=== PATIENT | female | born 1945 | race Caucasian/White ===

== ENCOUNTER → 2016-08-04 | Outpatient (CLI) | payer OTHER, MEDICARE | LOC: GMAB 17:09 | PROVIDERS: ATTEND Family Medicine | DX: D50.9 Iron deficiency anemia, unspecified (principal) ==

== ENCOUNTER → 2016-09-28 | Outpatient (CLI) | payer OTHER, MEDICARE | END | disposition home or self-care (01) | LOC: GMAB 12:57 | PROVIDERS: ATTEND Family Medicine | DX: D50.9 Iron deficiency anemia, unspecified (principal) ==

== ENCOUNTER → 2016-12-23 | Outpatient (CLI) | payer OTHER, MEDICARE | END | disposition home or self-care (01) | LOC: GMAB 11:31 | PROVIDERS: ATTEND Family Medicine | DX: M06.9 Rheumatoid arthritis, unspecified (principal) ==

== ENCOUNTER → 2017-10-14 | Outpatient (CLI) | payer MEDICARE, OTHER | LOC: GMAB 14:22 | PROVIDERS: ATTEND Family Medicine | DX: Z79.899 Other long term (current) drug therapy (principal) ==

== ENCOUNTER → 2017-11-23 | Outpatient (CLI) | payer MEDICARE, OTHER ==
--- NOTE | 2017-11-24 14:03 | MAM ---
EXAM DESCRIPTION: 3D Screening BILATERAL : Digital Mammography. CLINICAL HISTORY: 72 years Female SCREENING . No complaints. Fibroglandular breast tissue. No family history breast cancer. Childbirth. Postmenopausal. Currently on HRT. Prior cyst aspiration biopsy left breast. COMPARISON: 2-D digital screening bilateral study 06/16/2016.. Report from prior examination also reviewed. TECHNIQUE: Bilateral CC and MLO projection full-field images, 3-D tomosynthesis digital mammographic technique. CAD not utilized. FINDINGS: The breast parenchymal density pattern is: Scattered areas of fibroglandular density. No skin thickening or nipple retraction. Right breast axillary lymph nodes. Bilateral solitary microcalcifications. No focal, stellate mass or density, focal asymmetry , and no suspicious microcalcifications bilaterally. Stable mammograms compared to prior study, taking into account differences in mammographic technique IMPRESSION: BI-RADS CATEGORY: 2 - BENIGN FINDINGS. FOLLOW UP: Routine digital bilateral screening, one year interval from October 2017. Written communication explaining the IMPRESSION and follow-up, will be mailed to the patient and referring health care provider. According to the [employer], yearly mammograms are recommended starting at age 40 and continuing as long as a woman is in good health. Any breast change noted on a breast self-exam should be reported promptly to the patient's healthcare provider. Breast MRI is recommended for women with an approximately 20-25% or greater lifetime risk of breast cancer, including women with a strong family history of breast or ovarian cancer and women who have been treated for Hodgkin's disease. A negative mammographic report should not delay tissue diagnosis in patients with significant clinical history or physical findings. Extremely dense breast tissue limits the sensitivity of digital mammography. Electronically signed by: Charli Hopper MD 11/24/2017 2:02 PM CDT
== END ==
LOC: MAMMO 13:30
PROVIDERS: ATTEND Family Medicine
DX: Z12.31 Encounter for screening mammogram for malignant neoplasm of breast (principal)

== ENCOUNTER → 2017-12-06 | Outpatient (CLI) | payer MEDICARE, OTHER ==
--- NOTE | 2017-12-06 17:17 | RAD ---
EXAM DESCRIPTION: Chest,2 Views CLINICAL HISTORY: LATENT TUBERCULOSIS COMPARISON: None TECHNIQUE: PA/lateral FINDINGS: There is no acute appearing cardiac or pulmonary abnormality. Heart size is prominent with normal pulmonary vascularity. No pleural effusion or pneumothorax. Lungs are clear with no consolidating infiltrate. Lateral view shows intact sternum and T-spine. IMPRESSION: No acute process is identified in the chest. Electronically signed by: Nakul Ojeda MD 12/06/2017 5:16 PM CDT
== END ==
LOC: LAB.O 13:41
PROVIDERS: ATTEND Internal Medicine
DX: M06.9 Rheumatoid arthritis, unspecified (principal); R76.11 Nonspecific reaction to tuberculin skin test without active tuberculosis; Z79.899 Other long term (current) drug therapy

== ENCOUNTER → 2018-05-04 | Outpatient (CLI) | payer MEDICARE, OTHER | LOC: GMAE 16:41 | PROVIDERS: ATTEND Family Medicine | DX: R06.02 Shortness of breath (principal) ==

== ENCOUNTER → 2018-12-21 | Outpatient (CLI) | payer MEDICARE, OTHER ==
--- NOTE | 2018-12-21 11:36 | CT ---
Procedure: CT LUNG SCREENING Exam Date: 12/21/2018. Ordering Provider: Wilfrido Nunez Clinical Indication: PERSONAL HISTORY OF TOBACCO DEPENDENCY 40 pack year cigarette smoking. No smoking past 13 years. This patient meets eligibility criteria for low-dose CT lung cancer screening. Comparison: None. Technique: Using a multislice scanner, sequential helical axial imaging was obtained in the thorax, 2.5 mm thickness, 2.5 mm separation, from the level of the thoracic inlet through the lung bases without IV contrast. A low dose protocol was utilized for BMI greater than 30: BMI: 30.7. CTDI: 2.93 mGy. 120. kVp. 75 mA. DLP 106.25 mGy-centimeters. 2D sagittal and coronal reconstructed images, 6.0 mm thickness, were obtained. This exam was performed according to our departmental dose optimization program which includes use of automated exposure control, adjustment of the mA and/or kV according to patient size and/or use of iterative reconstruction technique. Nodule measurements under 10 mm are given as mean value of 3 axes diameters. FINDINGS: Lungs and large airways: Scattered blebs in the lung parenchyma bilaterally in a centrilobular distribution. Intermittent focal thickening on the bilateral major fissures. Also on the right horizontal fissure. 3 mm solid subpleural nodule superior segment lateral left lower lobe on axial series 2, image 80 (2/80. 5 mm solid nodule in the inferior anterior left lower lobe abutting the inferior aspect of the left major fissure on image 2/93. Pleura and space: Bilateral apical pleural thickening and fewer areas of focal pleural thickening mid and inferior lung devries. No effusion or pneumothorax. Mediastinum and dread: evaluation limited by low dose technique and lack of IV contrast. No enlarged lymph nodes or soft tissue masses. Heart and great vessels: Coronary artery calcifications. Minimal calcification in the thoracic aorta. Chest wall, lower neck, axillae: Evaluation also limited by same factors as described above. Normal size axillary lymph nodes with no large soft tissue masses. Bilateral nodular densities in the breasts. Small thyroid gland. Upper abdomen: Evaluation limited by low-dose technique. Atherosclerotic calcification abdominal aorta. Included peritoneal space is unremarkable. Gallbladder partially visualized. Osseous structures: Evaluation limited by low dose MIP technique. Minimal arthrosis in the thoracic spine and in the bilateral sternoclavicular joints. IMPRESSION: 1. 5 mm nodule is possibly a perifissural lymph node superior segment left lower lobe abutting the inferior left major fissure. 3 mm solid subpleural nodule in the superior segment of the left lower lobe. No larger nodules or soft tissue masses. No focal infiltrate. Bilateral multifocal pleural thickening especially in the apices. Please see below for Lung RADS category and FOLLOW-UP.* *Lung RADS category CATEGORY 2- Nodules with a very low likelihood (less than 1%) of becoming a clinically active cancer due to size or lack of growth. Nodules: Perifissural nodule(s) < 10 mm. (526mm3). Solid or part solid nodule(s) less than 6mm (113.1 mm3), new solid nodule less than 4mm (33.5 mm3). Ground glass nodule(s) less than 30mm (07890.2 mm3) or unchanged or slow growing ground glass nodule 30mm or greater. Cat 3 or 4 nodule unchanged for 3 or more months. FOLLOW-UP: Continue annual screening with a Low Dose Chest CT in 12 months for re-evaluation. 2. Bilateral nodular densities seen on the breasts. Last screening mammogram at this facility 06/16/2016. Recommend follow-up screening evaluation if not performed in the past 12 months. Electronically signed by: Charli Hopper MD 12/21/2018 11:34 AM CDT
--- NOTE | 2018-12-23 10:57 | MAM ---
EXAM DESCRIPTION: 3D Screening BILATERAL : Digital Mammography. CLINICAL HISTORY: 73 years Female ANNUAL SCREENING . No complaints. No personal or family history of breast cancer. Childbirth. Postmenopausal 45+ years. Currently on HRT. Prior left breast cyst aspiration and biopsy benign. Lifetime risk of developing breast cancer (Tyrer-Cuzick model)(%): 6.6. COMPARISON: Bilateral screening digital breast tomosynthesis 11/23/2017.. TECHNIQUE: Bilateral CC and MLO projection full-field images, digital tomosynthesis mammographic technique. Bilateral digital 2-D full-field MLO images. CAD not available for tomosynthesis or 2-D images. FINDINGS: The breast parenchymal density pattern is: Scattered areas of fibroglandular density. No skin thickening or nipple retraction. Skin of the chin partially obscuring the superior pectoral muscle on the right MLO image. Bilateral small solitary microcalcifications. No new focal, stellate mass or density, focal asymmetry , and no suspicious microcalcifications bilaterally. Stable mammograms compared to prior study. IMPRESSION: Benign exam. BIRAD CATEGORY: 2 BENIGN FINDINGS. RECOMMENDATIONS: FOLLOW UP: Routine digital bilateral mammographic screening, one year interval from October 2018. Written communication explaining the IMPRESSION and follow-up, will be mailed to the patient and referring health care provider. According to the [employer], yearly mammograms are recommended starting at age 40 and continuing as long as a woman is in good health. Any breast change noted on a breast self-exam should be reported promptly to the patient's healthcare provider. Breast MRI is recommended for women with an approximately 20-25% or greater lifetime risk of breast cancer, including women with a strong family history of breast or ovarian cancer and women who have been treated for Hodgkin's disease. A negative mammographic report should not delay tissue diagnosis in patients with significant clinical history or physical findings. Extremely dense breast tissue limits the sensitivity of digital mammography. Electronically signed by: Charli Hopper MD 12/23/2018 10:55 AM CDT
== END ==
LOC: CT 08:58
PROVIDERS: ATTEND Family Medicine
DX: Z12.31 Encounter for screening mammogram for malignant neoplasm of breast (principal); Z87.891 Personal history of nicotine dependence; R91.8 Other nonspecific abnormal finding of lung field
CPT/HCPCS: 77063; 77067; G0297

== ENCOUNTER → 2019-11-10 | Outpatient (CLI) | payer MEDICARE, OTHER | LOC: GMAE 11:35 | PROVIDERS: ATTEND Family Medicine | DX: M06.9 Rheumatoid arthritis, unspecified (principal); I10 Essential (primary) hypertension ==

== ENCOUNTER → 2020-01-25 | Outpatient (CLI) | payer MEDICARE, OTHER | LOC: LAB.O 09:48 | PROVIDERS: ATTEND Nurse Practitioner | DX: M06.9 Rheumatoid arthritis, unspecified (principal); Z79.899 Other long term (current) drug therapy ==

== ENCOUNTER → 2020-02-08 | Outpatient (CLI) | payer MEDICARE, OTHER ==
--- NOTE | 2020-02-08 18:45 | CT ---
Procedure: CT LUNG SCREENING Exam Date: 08 February 2020. Ordering Provider: Wilfrido Nunez Clinical Indication: PERSONAL HISTORY OF TOBACCO DEPENDENCE smoking cessation x 14 years. Previously 30 pack years. This patient meets eligibility criteria for low-dose CT lung cancer screening. Comparison: Low-dose CT lung cancer screening November 2018: Lung RADS 2. Technique: Using a multislice scanner, sequential helical axial imaging was obtained in the thorax, 2.5 mm thickness, 2.5 mm separation, from the level of the thoracic inlet through the lung bases without IV contrast. A low dose protocol was utilized for BMI greater than than 30: BMI: 30.7. CTDI: 2.92 mGy. 120. kVp. 75 mA. DLP 111 mGy-cm. 2D sagittal and coronal reconstructed images, 6.0 mm thickness, were obtained. This exam was performed according to our departmental dose optimization program which includes use of automated exposure control, adjustment of the mA and/or kV according to patient size and/or use of iterative reconstruction technique. Nodule measurements under 10 mm are given as mean value of 3 axes diameters. FINDINGS: Lungs and large airways: Minimal bilateral uniform blebs in a centrilobular distribution prevalent in the upper lung devries. Bilateral minimal perihilar peribronchial wall cuffing. 3.8 mm perifissural nodule in the anterior left upper lobe abutting the inferior left major fissure (axial series 2, image 88) has decreased in size since the prior study. 2.5 mm subpleural solid nodule lateral left lower lobe on image 2/76, is decreasing in size. Perifissural thickening right major fissure with calcification stable. 4.5 mm groundglass nodule subpleural lateral right upper lobe on image 2/45 is stable. Smaller subpleural groundglass nodules lateral right lower lobe also stable. Pleura and space: Bilateral multifocal pleural thickening more in the upper lobes and apices. No change. Mediastinum and dread: evaluation limited by low dose technique and lack of IV contrast. Small lymph nodes with no dominant soft tissue mass showing no interval change. Heart and great vessels: Coronary artery calcifications with minimal atherosclerotic calcifications of the aorta stable since the prior study. Chest wall, lower neck, axillae: Evaluation also limited by same factors as described above. Stable appearance of lymph nodes and breasts. Upper abdomen: Evaluation limited by low-dose technique. No free air or free fluid. Atherosclerotic calcifications. Adrenal glands and spleen normal size and density. Gallbladder visualized. Osseous structures: Evaluation limited by low dose MIP technique. Minimal spondylosis. Minimal arthrosis sternomanubrial joint. IMPRESSION: 1. Emphysematous changes upper lobes. Stable bilateral solid and groundglass nodules. No new nodules or mass. No interval infiltrate or focal infiltrate.. [facility] Best Practice Recommendations: please see below for Lung RADS category and FOLLOW-UP.* *Lung RADS category CATEGORY 2- Nodules with a very low likelihood (less than 1%) of becoming a clinically active cancer due to size or lack of growth. Nodules: Perifissural nodule(s) < 10 mm. (526mm3). Solid or part solid nodule(s) less than 6mm (113.1 mm3), new solid nodule less than 4mm (33.5 mm3). Ground glass nodule(s) less than 30mm (55755.2 mm3) or unchanged or slow growing ground glass nodule 30mm or greater. Cat 3 or 4 nodule unchanged for 3 or more months. FOLLOW-UP: Continue annual screening with a Low Dose Chest CT in 12 months for re-evaluation. Electronically signed by: Charli Hopper MD 02/08/2020 6:43 PM CDT
== END ==
LOC: CT 09:00
PROVIDERS: ATTEND Family Medicine
DX: Z87.891 Personal history of nicotine dependence (principal); J43.9 Emphysema, unspecified; R91.8 Other nonspecific abnormal finding of lung field

== ENCOUNTER → 2020-02-20 | Outpatient (CLI) | payer MEDICARE, OTHER | END | disposition home or self-care (01) | LOC: LAB.O 13:12 | PROVIDERS: ATTEND Internal Medicine | DX: M06.9 Rheumatoid arthritis, unspecified (principal); Z79.899 Other long term (current) drug therapy ==